=== PATIENT | male | born 1965 | race Caucasian/White ===

== ENCOUNTER 2025-03-22 09:41 | Outpatient (RCR) | payer OTHER, SELFPAY ==
[2025-03-22 10:38] LABS: Creatinine* 0.8 mg/dL (0.5-1.5); Estimated Glomerular Filt Rate 102 ml/min
--- NOTE | 2025-04-02 07:47 | ONC.NURNOTE ---
Dx: Colon cancer
== END 2025-09-18 23:59 | disposition home or self-care (01) ==
LOC: CCIC 09:41
PROVIDERS: PCP Family Medicine; Visit Provider Clinical Nurse Specialist
DX: C18.9 Malignant neoplasm of colon, unspecified (principal)
CPT/HCPCS: 36415; 82565; 99211